=== PATIENT | female | born 1985 | race Caucasian/White ===

== ENCOUNTER 2021-05-21 13:25 | Outpatient (CLI) | payer MEDICAID, SELFPAY ==
[2021-05-24 18:08] LABS: Chlamydia By Nucleic Acid AMP Negative (Negative)
[2021-05-25 10:13] LABS: Gonococcus By Nucleic Acid AMP Negative (Negative)
[2021-05-28 05:07] LABS: HPV Genotype 16, Aptima Negative (Negative)
[2021-05-28 16:24] LABS: HPV APTIMA, High Risk Positive (Negative); HPV Genotype 18,45 Aptima Negative (Negative)
== END 2021-05-21 23:59 | disposition short-term general hospital (02) ==
LOC: LABSPEC 13:30
PROVIDERS: Visit Provider Obstetrics & Gynecology
DX: Z12.4 Encounter for screening for malignant neoplasm of cervix (principal); Z11.3 Encounter for screening for infections with a predominantly sexual mode of transmission
CPT/HCPCS: 87491; 87591; 87624; 88175; G0145

== ENCOUNTER → 2022-09-28 | Outpatient (CLI) | payer MEDICAID, SELFPAY ==
[2022-10-03 15:08] LABS: HPV APTIMA, High Risk Negative (Negative)
== END | disposition home or self-care (01) ==
LOC: LABSPEC 14:49
PROVIDERS: Visit Provider Obstetrics & Gynecology
DX: Z01.419 Encounter for gynecological examination (general) (routine) without abnormal findings (principal)
CPT/HCPCS: 87624; 88175; G0145

== ENCOUNTER 2022-11-07 06:52 | Day surgery (SDC) | payer MEDICAID, SELFPAY ==
[2022-11-01 17:11] LABS: Hematocrit 38.5 % (37-47); Hemoglobin 12.6 g/dL (12.0-15.0); Mean Corp Hgb Conc 32.7 g/dL (32-36); Mean Corpuscular Hgb 28.8 pg (27.0-32.0); Mean Corpuscular Volume 88.1 fL (81-99); Mean Platelet Vol. 10.6 fl (6.2-12.0); Platelet Count 258 K/mm3 (150-450); RBC Distribution Width CV 13.2 % (11.6-14.6); RBC Distribution Width SD 42.8 fl (35.1-43.9); Red Blood Count 4.37 M/mm3 (4.2-5.4); White Blood Count 6.3 K/mm3 (4.4-11.0)
[2022-11-07] VITALS (7 sets, daily range): BP systolic 93–114; BP diastolic 52–91; PULSE 60–96; RESP 16; TEMP 36.2–37.1; O2SAT 94–100; BMI 23.4
[2022-11-07 07:18] LABS: Internal QC Validated? YES +Cl - CLEAR BKGD
[2022-11-07 07:19] LABS: Pregnancy, Urine Negative Negative
--- NOTE | 2022-11-07 07:22 | PCM.HP.BLA ---
History and Physical Date of Admission: 11/07/22 Chief complaint: desires permanent sterilization History present illness: 37-year-old arrives for scheduled laparoscopic tubal ligation for desired permanent sterilization. No medical changes since last seen. All questions answered and consent signed. Obstetric history: with a history of a vaginal delivery Past medical history: None Medications: None Allergies: No known drug allergies Past surgical history: Tonsils and adenoids Social history: Denies smoking, alcohol use, drug use Review of systems: Besides above pertinent positives a full review of systems was performed and found to be negative Physical exam: Vitals: Pending General: Normal-appearing no acute distress HEENT: Normocephalic, atraumatic no cervical lymphadenopathy Cardiac/respiratory: No use of accessory muscles, nonlabored breathing Abdomen: Soft, nontender, nondistended Extremities: No peripheral edema normal peripheral pulses Psych: Normal affect normal demeanor nonpressured speech Labs: Urine test negative Assessment and plan: 37-year-old arrives for scheduled laparoscopic tubal ligation for desired permanent sterilization. Patient educated on the risk of the procedure include but are not limited to visceral or vascular injury, prolonged hospitalization, blood loss need for transfusion, reoperation. Patient state understanding wish to proceed. All questions were answered and consent was signed
[2022-11-07] MEDS: Lactated Ringers 1,000 ML 15 ML IV ×2 (07:46→11:10)
--- NOTE | 2022-11-07 08:30 | FALS_PTH ---
PATIENT: YOHANNES MARCUM LOC: [facility] [place] U#:[id number] AGE/SX: 37/F ROOM: RE11/07/[address]: Dr. Raghavendra Del Cid MD : 1985 BED: DIS: 11/07/2022 SPEC #: [id number] RECD: 11/07/22 11:11 STATUS: CHAYITO LEODAN #: [id number] CAPRICE: 11/07/22 08:[address]: Raghavendra Del Cid DEPT: SURGICAL PATHOLOGY RECD BY: Carlie Jeter ENTERED: 11/07/22 11:33 SP TYPE: FALL TUBES OTHR DR: No Primary Care Phys Tissues: Fallopian tube Procedures: Surgery Specimen Level II HEADER OPERATION: Laparoscopic salpingectomy PRE-OP DIAGNOSIS: Desires sterilization TISSUE SUBMITTED: Bilateral fallopian tubes MICROSCOPIC DIAGNOSIS Right and left fallopian tubes, bilateral salpingectomies: Complete cross-sections of fallopian tubes with no pathologic change. AM:[email or web address] 11/08/2022 MICROSCOPIC DESCRIPTION Slides are reviewed. GROSS DESCRIPTION Received in fixative is one container labeled with the patient's name and designated bilateral fallopian tubes. The specimen consists of bilateral fallopian tubes including fimbrial ends each measuring 6.0 cm in length and 0.6 cm in diameter. The fallopian tubes are not identified as right or left. Sections reveal unremarkable cut surfaces. Sleeve Setter Lockstitch sections are submitted in two cassettes with each cassette containing one fallopian tube. / SJ:[email or web address] 11/07/2022 TC:4 CPT: 63670 x2
--- NOTE | 2022-11-07 09:49 | DCINST_ITS ---
Discharge Instructions Diet Discharge Diet: No restrictions Activity Discharge Activity: Return to Normal Activity, May Drive, May Shower and - (No tub baths for 2 weeks) May resume sexual activity in: 6-8 weeks Lifting Restrictions: No lifting over 25 pounds for 2 to 3 weeks Dressing / Incision Call your doctor if your incision/area has: Continuous Slow Oozing and Foul Smelling Discharge Call your doctor if you observe: Fever of 101 or Higher, Shortness of breath and Chest pain Follow Up Care Please Follow Up With: Raghavendra Del Cid MD When: 2 weeks postop Test Results: Test results from this visit will be discussed in further detail at your follow- up appointment, if applicable. Discharge Plan Admission Attending Provider: Raghavendra Del Cid Primary Care Provider: Care Physician,Slime Primary Discharge Orders/Prescriptions Prescriptions: No Action multivitamin [Daily Multi-Vitamin] Tablet 1 tab PO DAILY Disposition Disposition (needs filled in before D/C Order can be placed): Home, Self Care
--- NOTE | 2022-11-07 09:50 | OP.PCM_ITS ---
Report of Operation Date of Procedure: 11/07/22 Pre-Operative Diagnosis: Desires permanent sterilization Post-Operative Diagnosis: Desires permanent sterilization Surgery/Procedure Performed:: Laparoscopic bilateral salpingectomy Description of Surgical Findings:: Surgeon: Raghavendra Del Cid MD Anesthesia: General EBL: 5 cc Urine output: 700 cc IV fluids: 400 cc Complications: None Specimen: Bilateral fallopian tubes Findings: Normal uterus, tubes, and ovaries Consent: Patient arrives for scheduled laparoscopic bilateral salpingectomy. Patient understands risk of the procedure include but are not limited to visceral or vascular injury, prolonged hospitalization, blood loss need for transfusion, reoperation. Patient state understanding and wished to proceed. All questions were answered and consent was signed. Procedure: Patient was brought back to the OR where general anesthesia was found to be adequate. Patient was prepared and draped in a dorsolithotomy position with yellowfin stirrups. A weighted speculum is placed in the posterior aspect of vagina and cervical dilators were used to dilate cervix. Uterine manipulator was placed. Varies needle was inserted at the umbilicus and water safety test was passed. Abdomen was insufflated. 5 mm midline supraumbilical trocar was inserted under direct visualization. Laparoscope was inserted and above findings were noted. Left lower quadrant 5 mm trocar was inserted under direct visualization. 8 mm right lower quadrant trocar was inserted under direct visualization. Using an atraumatic grasper and a LigaSure device the left fallopian tube was identified out to the fimbria and the mesosalpinx was cut and cauterized, the fallopian tube was transected at the cornua and sent to pathology. In a similar fashion the right fallopian tube was identified to the fimbria and the mesosalpinx was cut and cauterized, fallopian tube was transected at the cornua and sent to pathology. Good hemostasis was noted at all operative sites. Insufflation pressure was decreased, trocars were removed under direct visualization and good hemostasis was noted. Abdomen was desufflated. Good hemostasis was noted. Laparoscopic port sites were closed in a subcutaneous fashion and skin glue was placed over the incisions. Good hemostasis was noted. All counts were correct x2. Patient tolerated procedure well and was brought to recovery in stable condition. napkin machine operator: Maverick Sanderson
[2022-11-07] MEDS: Ketorolac 30 MG/ML Syringe IV (10:54)
== END 2022-11-07 12:31 | disposition home or self-care (01) ==
LOC: SDC 06:59 → AC 07:00
PROVIDERS: Anesthesiology; Referring Provider Obstetrics & Gynecology; Visit Provider Obstetrics & Gynecology
PROC: (CPT 58661; principal; 2022-11-07 08:15)
DX: Z30.2 Encounter for sterilization (principal)
CPT/HCPCS: 58661; 36415; 81025; 85027; 86850; 86900; 86901; 88302; J7120; J2405